=== PATIENT | female | born 1990 | race Caucasian/White ===

== ENCOUNTER 2021-02-10 16:59 | Outpatient (CLI) | payer OTHER, SELFPAY | END 2021-02-10 17:00 | disposition home or self-care (01) | LOC: ANHCOVIDVC 17:00 | PROVIDERS: PCP Internal Medicine | DX: Z23 Encounter for immunization (principal) | CPT/HCPCS: 0001A; 91300 ==

== ENCOUNTER 2021-03-03 13:04 | Outpatient (CLI) | payer OTHER, SELFPAY | END 2021-03-03 13:05 | disposition home or self-care (01) | LOC: ANHCOVIDVC 13:04 | PROVIDERS: PCP Internal Medicine | DX: Z23 Encounter for immunization (principal) | CPT/HCPCS: 0002A; 91300 ==